=== PATIENT | male | born 1930 | race Caucasian/White ===

== ENCOUNTER 2018-06-26 15:00 | Outpatient (CLI) | payer MEDICARE, OTHER ==
[~2018-06-26] VITALS: Ht 172.7 cm; Wt 74.9 kg
[2018-06-26] MEDS ORDERED: BETH25TA11 PO (15:19)
[2018-06-26] MEDS ORDERED: DOCU-164 PO (15:19)
[2018-06-26] MEDS ORDERED: RIVA10TA PO (15:19)
[2018-06-26] MEDS ORDERED: TAMS0.4C98 PO (15:19)
[2018-06-26] MEDS ORDERED: CARV3.122 PO (15:19)
[2018-06-26 15:24] VITALS: BP 119/89
== END 2018-06-26 15:57 | disposition home or self-care (01) ==
LOC: PREOP 15:00
PROVIDERS: ATTEND Urology
DX: Z01.818 Encounter for other preprocedural examination (principal)
CPT/HCPCS: 87081

== ENCOUNTER 2018-06-28 07:51 | Day surgery (SDC) | payer MEDICARE, OTHER ==
[2018-06-28] VITALS (10 sets, daily range): BP systolic 83–147; BP diastolic 57–94
[~2018-06-28] VITALS: Ht 172.7 cm; Wt 74.9 kg
--- NOTE | 2018-06-28 07:12 | Progress Note-Post Operative ---
Post-Operative Progess Note Surgeon (s)/Mechanical Process Engineer (s) Surgeon ELIDA IZAGUIRRE MD Mechanical Process Engineer: NONE Pre-Operative Diagnosis RT DISTAL URETERAL STONE Post-Operative Diagnosis BLADDER STONE Procedure & Operative Findings Date of Procedure 06/28/18 Procedure Performed/Findings CYSTOLITHOTRIPSY Anesthesia Type GENERAL Estimated Blood Loss Estimated blood loss (mL): NONE Specimens/Packing Specimens Removed BLADDER STONE FRAGMENTS Packing: NONE ELIDA IZAGUIRRE MD June 28, 2018 07:12
--- NOTE | 2018-06-28 07:12 | Progress Note-Pre Operative ---
Pre-Operative Progress Note H&P Reviewed The H&P was reviewed, patient examined and no changes noted. Date Seen by Provider: June 28, 2018 Time Seen by Provider: 09:20 Date H&P Reviewed: June 28, 2018 Time H&P Reviewed: 09:20 Pre-Operative Diagnosis: RT DISTAL URETERAL STONE ELIDA IZAGUIRRE MD June 28, 2018 07:11
[~2018-06-28 07:51] MED LIST: BETH25TA11 PO; CARV3.122 PO; DOCU-164 PO; RIVA10TA PO; TAMS0.4C98 PO
[2018-06-28] MEDS ORDERED: LACTATED RINGERS 1,000 ML IV PRN (07:53)
[2018-06-28] MEDS ORDERED: cefTRIAXone FOR IV USE 1,000 MG in WATER (STERILE) FOR INJECTION 10 ML IV ONE (08:00)
[2018-06-28] MEDS ORDERED: CATHETER FLUSH 10 ML SYR IV PRN (08:15)
[2018-06-28] MEDS ORDERED: fentaNYL INJECTION 100 MCG/2 ML AMP ONE (09:18)
[2018-06-28] MEDS ORDERED: LIDOCAINE PF 2% 5 ML (XYLOCAINE) VIAL ONE (09:18)
[2018-06-28] MEDS ORDERED: proPOfol 200 MG/20 ML (DIPRIVAN) VIAL IV ONE (09:18)
[2018-06-28] MEDS ORDERED: ONDANSETRON 4 MG/2 ML (SDV) Z0FRAN ONE (09:21)
[2018-06-28] MEDS ORDERED: DEXAMETHASONE 10 MG/ML (DECADRON) 1 ML VIAL ONE (09:21)
[2018-06-28] MEDS ORDERED: SEVOFLURANE (ULTANE) 15 ML INHAL SOLN ONE ×3 (09:21→10:25)
[2018-06-28] MEDS ORDERED: ROCURONIUM 10 MG/ML 5 ML SYRINGE IV ONE (09:47)
[2018-06-28] MEDS ORDERED: GLYCOPYRROLATE 0.2 MG/ML (ROBINUL) 2 ML VIAL ONE (10:11)
--- NOTE | 2018-06-28 10:44 | Discharge Inst-Urology ---
Discharge Inst-Urology Discharge Medications New, Converted, or Re-newed RX: RX on Chart Patient Instructions/Follow Up Plan Please make appointment to been seen in office in 2 weeks for bladder scan Stone fragments for analysis post seen by patient, has them In 48 hours, if no bleeding, may resume Xarelto Increase oral fluids for 48 hours and then as needed. Diet and Activity as tolerated. If questions or concerns contact your physician Or seek help at emergency department. ELIDA IZAGUIRRE MD June 28, 2018 10:44
--- NOTE | 2018-06-28 11:30 | NUR ---
stone fragments sent to lab for eval after seen by pt
--- NOTE | 2018-06-28 11:38 | Diagnostic Imaging Report ---
EXAMINATION: Supine abdomen at 0816 hours. INDICATION: Right ureteral stone. COMPARISON: There are no prior studies available for comparison. FINDINGS: There is no evidence for a calculus overlying either kidney; however, both kidneys are partially obscured by bowel gas and fecal material. There are also numerous surgical clips and sutures overlying the right kidney. There are a few small (2-3 mm) calcifications along the expected path of the right ureter. There is also a much larger 8 x 8 mm irregular calcification overlying the ureterovesical junction on the right. If this was an obstructive calculus, it would be quite sizable. This may merely represent a phlebolith; however, if previous studies are available, they would be helpful for comparison. If there are no prior studies available and further imaging is desired, then a CT would be recommended. There is no mass, organomegaly, or pathological calcification identified otherwise. There do appear to coarse areas of increased density overlying each lung base. Whether these findings are chronic in nature or whether they are related to pneumonia/atelectasis is not certain. Again, if previous studies are available, they would be helpful for comparison. There is no acute bony abnormality identified. IMPRESSION: 1. There are a few calcifications overlying the expected path of the right ureter and there is a sizable calcification near the ureterovesical junction on the right. Considerations and recommendations as above. 2. There is no acute abnormality in the abdomen noted otherwise. 3. The irregular densities overlying the lung bases are of uncertain etiology. Dictated by: Dictated on workstation # [id number]
--- NOTE | 2018-06-28 12:14 | Anesthesia-General Post-Op ---
General Patient Condition Mental Status/LOC: Same as Preop Cardiovascular: Satisfactory Nausea/Vomiting: Absent Respiratory: Satisfactory Pain: Controlled Complications: Absent Post Op Complications Complications None Follow Up Care/Instructions Patient Instructions None needed. Anesthesia/Patient Condition Patient Condition Patient is doing well, no complaints, stable vital signs, no apparent adverse anesthesia problems. No complications reported per nursing. FRANCISCO SYLVESTER CRNA June 28, 2018 12:14
[2018-06-28] MEDS ORDERED: CIPR-225 PO (12:19)
[2018-06-28] MEDS ORDERED: PHEN-640 PO (12:19)
--- NOTE | 2018-06-28 14:22 | OPERATIVE REPORT ---
DATE OF SERVICE: 06/28/2018 PREOPERATIVE DIAGNOSIS: Right distal ureteral stone. POSTOPERATIVE DIAGNOSIS: Bladder stone. OPERATION PERFORMED: Cystolithotripsy. SURGEON: Anthony Izaguirre MD ANESTHESIA: General. COMPLICATIONS: None. DESCRIPTION OF PROCEDURE: Under satisfactory general anesthesia, the patient in lithotomy position, genitalia were prepped and draped in the usual sterile fashion. Cystoscope was introduced under vision. The anterior urethra was normal. The prostate showed some enlargement with bladder neck obstruction. The bladder was inspected revealed a 4+ trabeculation with cellules and a bladder stone, which must have slipped from the ureteral orifice into the bladder. I went ahead and performed cystolithotripsy and broke the stone into very small fragments and irrigated them all out until I could not see any further fragment even inspecting the cellules there. The bladder was evacuated. The cystoscope was removed. The patient tolerated the procedure and anesthesia well and was sent to recovery room in stable condition. Job ID: [id number] DocumentID: [id number] Dictated Date: 06/28/2018 10:46:30 Snapper On Date: 06/28/2018 14:21:41 Dictated By: ANTHONY IZAGUIRRE MD
== END 2018-06-28 12:45 | disposition home or self-care (01) ==
LOC: SDC 07:51
PROVIDERS: ATTEND Urology
DX: N21.0 Calculus in bladder (principal); Z88.5 Allergy status to narcotic agent; I25.10 Atherosclerotic heart disease of native coronary artery without angina pectoris; I48.91 Unspecified atrial fibrillation; N40.0 Benign prostatic hyperplasia without lower urinary tract symptoms; F41.9 Anxiety disorder, unspecified; N31.9 Neuromuscular dysfunction of bladder, unspecified; Z79.01 Long term (current) use of anticoagulants; Z79.899 Other long term (current) drug therapy; Z85.038 Personal history of other malignant neoplasm of large intestine; Z99.81 Dependence on supplemental oxygen; N32.0 Bladder-neck obstruction
CPT/HCPCS: 74018; 88300